=== PATIENT | female | born 1985 | race Caucasian/White ===

== ENCOUNTER 2021-01-09 12:38 | Emergency (ER) | payer BC ==
[~2021-01-09] VITALS: Ht 175.3 cm; Wt 72.1 kg
--- NOTE | 2021-01-09 12:55 | NUR ---
"Started having Pain mid epigastric to chest area about 1230- have had same thing before. Had COVID vaccine 2wks ago" Patient a/ox4, breathing even and unlabored, no sob noted. In bed, kept comfortable.
--- NOTE | 2021-01-09 13:00 | NUR ---
dr. miguel at bedside for eval
[2021-01-09 15:26] VITALS: BP 130/85
== END 2021-01-09 15:27 | disposition home or self-care (01) ==
LOC: ER 12:41
DX: R07.89 Other chest pain (principal); K21.9 Gastro-esophageal reflux disease without esophagitis
CPT/HCPCS: 71045-TC; 84703-TC